=== PATIENT | male | born 1970 | race American Indian/Alaskan Native ===

== ENCOUNTER 2017-12-28 08:09 | Outpatient (CLI) | payer MEDICARE ==
[2017-12-28] MEDS ORDERED: XYLOCAINE TOPICAL 4% TP ONE ×3 (08:37→09:22)
== END 2017-12-28 08:10 | disposition home or self-care (01) ==
LOC: WOUND 08:09
PROVIDERS: ATTEND Surgery
DX: E11.622 Type 2 diabetes mellitus with other skin ulcer (principal); L97.122 Non-pressure chronic ulcer of left thigh with fat layer exposed; L97.112 Non-pressure chronic ulcer of right thigh with fat layer exposed; I63.30 Cerebral infarction due to thrombosis of unspecified cerebral artery; I10 Essential (primary) hypertension; G47.30 Sleep apnea, unspecified; E66.01 Morbid (severe) obesity due to excess calories; Z68.43 Body mass index [BMI] 50.0-59.9, adult; Z99.2 Dependence on renal dialysis; Z86.73 Personal history of transient ischemic attack (TIA), and cerebral infarction without residual deficits
CPT/HCPCS: 99215; G0463

== ENCOUNTER 2018-01-04 08:49 | Outpatient (CLI) | payer MEDICARE ==
[2018-01-04] MEDS ORDERED: XYLOCAINE TOPICAL 4% TP ONE (09:22)
[2018-01-04] MEDS ORDERED: SILVER NITRATE TP ONE (09:31)
== END 2018-01-04 08:50 | disposition home or self-care (01) ==
LOC: WOUND 08:49
PROVIDERS: ATTEND Surgery
DX: E11.622 Type 2 diabetes mellitus with other skin ulcer (principal); L97.122 Non-pressure chronic ulcer of left thigh with fat layer exposed; I10 Essential (primary) hypertension; G47.30 Sleep apnea, unspecified; E66.9 Obesity, unspecified; Z99.2 Dependence on renal dialysis; Z68.43 Body mass index [BMI] 50.0-59.9, adult; Z86.73 Personal history of transient ischemic attack (TIA), and cerebral infarction without residual deficits

== ENCOUNTER 2018-01-11 09:28 | Outpatient (CLI) | payer MEDICARE ==
[2018-01-11] MEDS ORDERED: XYLOCAINE TOPICAL 4% TP ONE (10:03)
== END 2018-01-11 09:29 | disposition home or self-care (01) ==
LOC: WOUND 09:28
PROVIDERS: ATTEND Surgery
DX: E11.622 Type 2 diabetes mellitus with other skin ulcer (principal); L97.122 Non-pressure chronic ulcer of left thigh with fat layer exposed; M25.852 Other specified joint disorders, left hip; M25.851 Other specified joint disorders, right hip; I10 Essential (primary) hypertension; G47.30 Sleep apnea, unspecified; E66.01 Morbid (severe) obesity due to excess calories; Z99.2 Dependence on renal dialysis; Z68.43 Body mass index [BMI] 50.0-59.9, adult; Z86.73 Personal history of transient ischemic attack (TIA), and cerebral infarction without residual deficits

== ENCOUNTER 2018-01-18 09:13 | Outpatient (CLI) | payer MEDICARE ==
[2018-01-18] MEDS ORDERED: XYLOCAINE TOPICAL 4% TP ONE ×2 (09:28→09:32)
== END 2018-01-18 09:14 | disposition home or self-care (01) ==
LOC: WOUND 09:13
PROVIDERS: ATTEND Surgery
DX: E11.622 Type 2 diabetes mellitus with other skin ulcer (principal); L98.411 Non-pressure chronic ulcer of buttock limited to breakdown of skin; L97.111 Non-pressure chronic ulcer of right thigh limited to breakdown of skin; S71.002D Unspecified open wound, left hip, subsequent encounter; S71.001D Unspecified open wound, right hip, subsequent encounter; G47.30 Sleep apnea, unspecified; E66.9 Obesity, unspecified; I10 Essential (primary) hypertension; Z99.2 Dependence on renal dialysis; Z86.73 Personal history of transient ischemic attack (TIA), and cerebral infarction without residual deficits; X58.XXXD Exposure to other specified factors, subsequent encounter
CPT/HCPCS: 99215; G0463

== ENCOUNTER 2018-01-25 09:09 | Outpatient (CLI) | payer MEDICARE ==
[2018-01-25] MEDS ORDERED: XYLOCAINE TOPICAL 4% TP ONE (09:26)
[2018-01-25] MEDS ORDERED: SILVER NITRATE TP ONE (09:27)
== END 2018-01-25 09:10 | disposition home or self-care (01) ==
LOC: WOUND 09:09
PROVIDERS: ATTEND Surgery
DX: E11.622 Type 2 diabetes mellitus with other skin ulcer (principal); L97.111 Non-pressure chronic ulcer of right thigh limited to breakdown of skin; I10 Essential (primary) hypertension; G47.30 Sleep apnea, unspecified; E66.9 Obesity, unspecified; Z99.2 Dependence on renal dialysis; Z86.73 Personal history of transient ischemic attack (TIA), and cerebral infarction without residual deficits